=== PATIENT | female | born 1950 | race Caucasian/White ===

== ENCOUNTER 2020-08-06 21:45 | Emergency (ER) | payer MEDICARE ==
[~2020-08-06] VITALS: Ht 157.5 cm; Wt 77.3 kg
[2020-08-06] MEDS ORDERED: IV NORMAL SALINE 1000ML BAG 1,000 ML IV ONE (22:00)
--- NOTE | 2020-08-06 22:03 | ED.ADGEN ---
General Adult EDM: Chief Complaint: HYPERGLYCEMIA HPI: HPI: Patient is a 70 year old female brought in by EMS for hyperglycemia. Patient states that she checked her blood sugar and was over 400 her home monitor. Per EMS it was 549. Patient states she was going to take her long-acting insulin and only at 8 units left, would not be taken 32. Otherwise states she feels fine. Is on a steroid taper after any procedure. Review of Systems: Review of Systems: All other systems within normal limits except for as noted in the HPI Current Medications: Current Medications Medications (Trade) Dose Ordered Sig/Cruz Start Time Stop Time Status Last Admin Dose Admin Insulin Human Regular (HumuLIN R VIAL) 25 unit 1X ONCE 08/06/20 23:45 08/06/20 23:46 Ropinirole HCl (Requip) 3 mg 1X ONCE 08/06/20 23:45 08/06/20 23:46 Sodium Chloride 1,000 ml @ 1,000 mls/hr 1X ONCE 08/06/20 22:00 08/06/20 23:33 DC 08/06/20 23:12 1,000 MLS/HR Allergies: Allergies: Allergies Coded Allergies Type Severity Reaction Last Updated Verified No Known Drug Allergies 08/06/20 No Physical Exam: PE: Constitutional: Well developed, well nourished, no acute distress, non-toxic appearance. [] HENT: Normocephalic, atraumatic, bilateral external ears normal, nose normal. [] Eyes: PERRLA, conjunctiva normal, no discharge. [] Neck: No rigidity, supple, no stridor. [] Cardiovascular: Irregular regular rhythm, brisk cap refill [] Lungs & Thorax: Non labored symmetric respirations, no tachypnea or respiratory distress [] Abdomen: Soft, nondistended. Skin: Warm, dry, no erythema, no rash. [] Back: Unremarkable Extremities: No deformities, range of motion grossly intact, no lower extremity edema [] Neurologic: Alert and oriented X 3, no focal deficits noted. [] Psychologic: Affect normal, judgement normal, mood normal. [] Current Patient Data: Labs: Laboratory Tests Test 08/06/20 22:35 08/06/20 22:40 Urine Collection Type Unknown Urine Color Yellow Urine Clarity Clear Urine pH 6.0 (<5.0-8.0) Urine Specific [place] 1.025 (1.000-1.030) Urine Protein Negative mg/dL (NEG-TRACE) Urine Glucose (UA) >=1000 mg/dL (NEG) Urine Ketones (Stick) Negative mg/dL (NEG) Urine Blood Negative (NEG) Urine Nitrite Negative (NEG) Urine Bilirubin Negative (NEG) Urine Urobilinogen Dipstick 0.2 mg/dL (0.2 mg/dL) Urine Leukocyte Esterase Negative (NEG) Urine RBC 0 /HPF (0-2) Urine WBC 1-4 /HPF (0-4) Urine Squamous Epithelial Cells Many /LPF Urine Bacteria Few /HPF (0-FEW) Urine Mucus Slight /LPF Urine Yeast Present /HPF White Blood Count 7.6 x10^3/uL (4.0-11.0) Red Blood Count 3.13 x10^6/uL (3.50-5.40) L Hemoglobin 8.7 g/dL (12.0-15.5) L Hematocrit 27.4 % (36.0-47.0) L Mean Corpuscular Volume 88 fL (79-100) Mean Corpuscular Hemoglobin 28 pg (25-35) Mean Corpuscular Hemoglobin Concent 32 g/dL (31-37) Red Cell Distribution Width 18.1 % (11.5-14.5) H Platelet Count 424 x10^3/uL (140-400) H Neutrophils (%) (Auto) 91 % (31-73) H Lymphocytes (%) (Auto) 7 % (24-48) L Monocytes (%) (Auto) 2 % (0-9) Eosinophils (%) (Auto) 0 % (0-3) Basophils (%) (Auto) 0 % (0-3) Neutrophils # (Auto) 6.9 x10^3/uL (1.8-7.7) Lymphocytes # (Auto) 0.5 x10^3/uL (1.0-4.8) L Monocytes # (Auto) 0.1 x10^3/uL (0.0-1.1) Eosinophils # (Auto) 0.0 x10^3/uL (0.0-0.7) Basophils # (Auto) 0.0 x10^3/uL (0.0-0.2) Segmented Neutrophils % 88 % (35-66) H Band Neutrophils % 2 % (0-9) Lymphocytes % 9 % (24-48) L Monocytes % 1 % (0-10) Platelet Estimate Adequate (ADEQUATE) Anisocytosis Slight Sodium Level 140 mmol/L (136-145) Potassium Level 4.1 mmol/L (3.5-5.1) Chloride Level 103 mmol/L (98-107) Carbon Dioxide Level 26 mmol/L (21-32) Anion Gap 11 (6-14) Blood Urea Nitrogen 17 mg/dL (7-20) Creatinine 1.2 mg/dL (0.6-1.0) H Estimated GFR (Cockcroft-Gault) 44.2 BUN/Creatinine Ratio 14 (6-20) Glucose Level 392 mg/dL (70-99) H Calcium Level 7.5 mg/dL (8.5-10.1) L Phosphorus Level 3.7 mg/dL (2.6-4.7) Magnesium Level 2.0 mg/dL (1.8-2.4) Total Bilirubin 0.4 mg/dL (0.2-1.0) Aspartate Amino Transferase (AST) 20 U/L (15-37) Alanine Aminotransferase (ALT) 32 U/L (14-59) Alkaline Phosphatase 204 U/L (46-116) H Troponin I Quantitative < 0.017 ng/mL (0.000-0.055) Total Protein 6.1 g/dL (6.4-8.2) L Albumin 3.2 g/dL (3.4-5.0) L Albumin/Globulin Ratio 1.1 (1.0-1.7) Lipase 679 U/L (73-393) H Laboratory Tests 08/06/20 22:40 Laboratory Tests 08/06/20 22:40 EKG: EKG: Irregular rhythm, Heart rate 44 bpm right axis deviation, no ST elevation or depression [] Heart Score: C/O Chest Pain: No Risk Factors: Risk Factors: DM, Current or recent (<one month) smoker, HTN, HLP, family history of CAD, obesity. Risk Scores: Score 0 - 3: 2.5% MACE over next 6 weeks - Discharge Home Score 4 - 6: 20.3% MACE over next 6 weeks - Admit for Clinical Observation Score 7 - 10: 72.7% MACE over next 6 weeks - Early Invasive Strategies Radiology/Procedures: Radiology/Procedures: [] Course & Med Decision Making: Course & Med Decision Making Pertinent Labs and Imaging studies reviewed. (See chart for details) [] Dragon Disclaimer: Dragon Disclaimer: This electronic medical record was generated, in whole or in part, using a voice recognition dictation system. Departure Departure Impression: Primary Impression: Hyperglycemia due to diabetes mellitus Disposition: HOME / SELF CARE / HOMELESS Condition: STABLE Patient Instructions: Hyperglycemia JORDAN JIMÉNEZ MD August 06, 2020 22:03
[2020-08-06 22:40] LABS: BILIRUBIN,URINE NEGATIVE (NEG); CLARITY,URINE CLEAR; COLOR,URINE YELLOW; NITRITE,URINE NEGATIVE (NEG); PROTEIN,URINE NEGATIVE (NEG-TRACE); UROBILINOGEN,URINE 0.2 mg/dL (0.2 mg/dL)
[2020-08-06 22:48] LABS: BASO % 0 % (0-3); EOS % 0 % (0-3); HEMATOCRIT 27.4 % (36.0-47.0); HEMOGLOBIN 8.7 g/dL (12.0-15.5); LYMPH # 0.5 x10^3/uL (1.0-4.8); LYMPH % 7 % (24-48); MEAN CORPUSCULAR HEMOGLOBIN 28 pg (25-35); MEAN CORPUSCULAR HGB CONC 32 g/dL (31-37); MEAN CORPUSCULAR VOLUME 88 fL (79-100); MONO # 0.1 x10^3/uL (0.0-1.1); MONO % 2 % (0-9); NEUT # 6.9 x10^3/uL (1.8-7.7); NEUT % 91 % (31-73); PLATELET COUNT 424 x10^3/uL (140-400); RED BLOOD COUNT 3.13 x10^6/uL (3.50-5.40); RED CELL DISTRIBUTION WIDTH 18.1 % (11.5-14.5); WHITE BLOOD COUNT 7.6 x10^3/uL (4.0-11.0)
[2020-08-06 22:48] LABS: BACTERIA,URINE FEW /HPF (0-FEW); RBC,URINE 0 /HPF (0-2); YEAST,URINE PRESENT /HPF
--- NOTE | 2020-08-06 22:52 | EKG ---
[facility] [address] [place] [address] Test Date: 2020-08-06 Test Time: 22:47:15 Pat Name: TAMI TOM Department: Room: Gender: F [employer] Professor: : 1950 Requested By: JORDAN JIMÉNEZ Order Number: [id number] Reading MD: Measurements Intervals [place] Rate: 44 P: SD: QRS: 168 QRSD: 100 T: 152 QT: 552 QTc: 476 Interpretive Statements IRREGULAR RHYTHM, NO P-WAVE FOUND ABNORMAL RIGHT AXIS DEVIATION QRS(T) CONTOUR ABNORMALITY CONSISTENT WITH HIGH LATERAL INFARCT AGE UNDETERMINED ABNORMAL ECG RI6.01 No previous ECG available for comparison
[2020-08-06 22:57] LABS: CALCIUM 7.5 mg/dL (8.5-10.1); CREATININE 1.2 mg/dL (0.6-1.0); GFR 44.2; POTASSIUM 4.1 mmol/L (3.5-5.1)
[2020-08-06 23:03] LABS: ALBUMIN 3.2 g/dL (3.4-5.0); ALBUMIN/GLOBULIN RATIO 1.1 (1.0-1.7); PHOSPHORUS 3.7 mg/dL (2.6-4.7); TOTAL BILIRUBIN 0.4 mg/dL (0.2-1.0); TOTAL PROTEIN 6.1 g/dL (6.4-8.2)
[2020-08-06 23:22] LABS: % BANDS 2 % (0-9); % LYMPHS 9 % (24-48); % MONOS 1 % (0-10); % SEGS 88 % (35-66); ANISOCYTOSIS SLIGHT; PLT ESTIMATE ADEQUATE (ADEQUATE)
[2020-08-06] MEDS ORDERED: INSULIN REGULAR 100 UNIT/ML 3ML VIAL. SQ ONE (23:45)
[2020-08-06] MEDS ORDERED: rOPINIRole 1 MG TABLET. PO ONE (23:45)
[2020-08-07 00:01] VITALS: BP 138/60
== END 2020-08-07 00:13 | disposition home or self-care (01) ==
LOC: ER 21:45
DX: E11.65 Type 2 diabetes mellitus with hyperglycemia (principal)
CPT/HCPCS: 36415; 80053; 81001; 83690; 83735; 84100; 84484; 85007; 85025; 93005; 96360; 96372; 99284; J1815; J7030